=== PATIENT | male | born 1955 | race American Indian/Alaskan Native ===

== ENCOUNTER 2018-02-14 08:32 | Inpatient (IN) | payer MEDICARE ==
[2018-02-14] MEDS ORDERED: D50W (25GM) Vial IV ONE (09:26)
[2018-02-14] MEDS ORDERED: D50W (25GM) Syringe IV ONE ×7 (09:26→17:13)
[2018-02-14 09:28] LABS: Basophils % (Auto) 0.2 % (0.0-1.8); Eosinophils % (Auto) 0.1 % (0.0-4.3); Hematocrit 34.3 % (35.5-45.6); Hemoglobin 11.2 gm/dl (11.8-15.2); Lymphocytes # (Auto) 0.7 K/mm3 (1.2-5.4); Lymphocytes % (Auto) 5.8 % (13.4-35.0); Mean Corpuscular HGB Conc 33 % (32-34); Mean Corpuscular Volume 84 fl (84-94); Monocytes # (Auto) 0.8 K/mm3 (0.0-0.8); Monocytes % (Auto) 7.1 % (0.0-7.3); Platelet Count 271 K/mm3 (140-440); Red Blood Count 4.06 M/mm3 (3.65-5.03); Red Cell Distribution Width 15.8 % (13.2-15.2)
[2018-02-14 09:50] LABS: Calcium 8.7 mg/dL (8.4-10.2)
--- NOTE | 2018-02-14 10:04 | Emergency Department Report ---
HPI - General Chief Complaint: Hypoglycemia Time Seen by Provider: 02/14/18 08:57 - HPI HPI: 62-year-old -Italian male presents to the emergency department via EMS from his shelter facility at the [facility] with the complaint of hypoglycemia. Patient had some low blood sugar yesterday and was difficult to arouse. He was given a couple of shots of glucagon with some improvement. However the patient's blood sugar was once again low today. EMS found him to have a blood sugar of 106 on scene but it was found to be critical low upon arrival here today. He has a past medical history of hemiparesis/hemiplegia secondary to a previous CVA, schizophrenia, depression, hypertension, glaucoma, [id number] diabetes, GERD, hyperlipidemia. Patient is a poor historian secondary to his current and chronic medical conditions. ED Past Medical Hx - Past Medical History Previous Medical History?: Yes Hx CVA: Yes Hx Diabetes: Yes Hx Dementia: Yes - Social History Smoking Status: Unknown if ever smoked - Medications Home Medications: Home Medications Medication Instructions Recorded Confirmed Last Taken Type Acetaminophen [Tylenol] 650 mg PO Q6HR PRN 02/14/18 02/14/18 Unknown History Amlodipine Besylate [Norvasc] 10 mg PO DAILY 02/14/18 02/14/18 Unknown History Atorvastatin Calcium [Lipitor] 10 mg PO HS 02/14/18 02/14/18 Unknown History Atorvastatin Calcium [Lipitor] 40 mg PO HS 02/14/18 02/14/18 Unknown History Cholecalciferol (Vitamin D3) 50,000 unit PO DAILY 02/14/18 02/14/18 Unknown History [Decara 50,000 unit] Clopidogrel Bisulfate [Plavix] 75 mg PO QDAY 02/14/18 02/14/18 Unknown History Famotidine [Pepcid] 20 mg PO QDAY 02/14/18 02/14/18 Unknown History Ferrous Sulfate [Iron] 325 mg PO QDAY 02/14/18 02/14/18 Unknown History Fluticasone Propionate [Cutivate 1 applic TP Q12H PRN 02/14/18 02/14/18 Unknown History 0.05% CREAM] Furosemide [Lasix] 20 mg PO QDAY 02/14/18 02/14/18 Unknown History Gabapentin [Neurontin] 300 mg PO BID 02/14/18 02/14/18 Unknown History Hypromellose [Genteal Severe] 1 inch OD QID 02/14/18 02/14/18 Unknown History Insulin Glargine,Hum.rec.anlog 30 units SUB-Q QHS 02/14/18 02/14/18 Unknown History [Kenanbraydon Brush] Insulin Lispro [HumaLOG VIAL] See Protocol SUB-Q BID 02/14/18 02/14/18 Unknown History Lisinopril [Zestril] 20 mg PO QDAY 02/14/18 02/14/18 Unknown History Metformin HCl [Glucophage] 500 mg PO BID 02/14/18 02/14/18 Unknown History Nitroglycerin [Nitro-Dur] 1 each TD QAM 02/14/18 02/14/18 Unknown History Talmage-3 Fatty Acids 500 mg PO DAILY 02/14/18 02/14/18 Unknown History Phenytoin [Dilantin] 300 mg PO HS 02/14/18 02/14/18 Unknown History Potassium Chloride [Klor-Con 10] 10 meq PO QDAY 02/14/18 02/14/18 Unknown History Triamcinolone 0.1% [Kenalog 0.1% 1 applic TP BID 02/14/18 02/14/18 Unknown History OINT] Valproic Acid [Depakene] 250 mg PO BID 02/14/18 02/14/18 Unknown History traZODone [Desyrel] 25 mg PO QHS 02/14/18 02/14/18 Unknown History ED Review of Systems ROS: Stated complaint: LOW BLOOD SUGAR Other details as noted in HPI Comment: Unobtainable due to pts medical conditions Physical Exam - Physical Exam Vital Signs: Vital Signs 02/14/18 09:55 Temperature 98.4 F Pulse Rate 121 H Respiratory 21 Rate Blood Pressure 152/71 [Left] O2 Sat by Pulse 100 Oximetry Physical Exam: GENERAL: The patient is well-developed well-nourished. HEENT: Normocephalic. Atraumatic. Patient has moist mucous membranes. EYES: Extraocular motions are intact. Pupils are equal and reactive to light bilaterally. NECK: Supple. Trachea is midline. CHEST/LUNGS: Clear to auscultation. There is no respiratory distress noted. HEART/CARDIOVASCULAR: Regular. There is mild tachycardia. There is no obvious murmur. ABDOMEN: Abdomen is soft, nontender. Patient has normal bowel sounds. There is no abdominal distention. SKIN: Skin is warm and dry. NEURO: The patient is and attempts to be cooperative. He has chronic aphasia and dysarthria. Patient attempts to converse and appears to understand questions asked of him. MUSCULOSKELETAL: There is no tenderness or deformity. There is no evidence of acute injury. ED Course Vital Signs 02/14/18 09:55 Temperature 98.4 F Pulse Rate 121 H Respiratory 21 Rate Blood Pressure 152/71 [Left] O2 Sat by Pulse 100 Oximetry ED Medical Decision Making - Lab Data Result diagrams: 02/14/18 08:57 02/14/18 08:57 - EKG Data -: EKG Interpreted by Me EKG shows normal: sinus rhythm, axis (left axis deviation), intervals (T waves to the anterior and lateral and inferior leads), QRS complexes, ST-T waves (there is some early repolarization or J-point elevation to the anterior leads) Rate: tachycardia (115 bpm) - EKG Data When compared to previous EKG there are: previous EKG unavailable Interpretation: other (sinus tachycardia, left axis deviation, Q waves throughout the leads, early repolarization or J-point elevation to the anterior leads) - Radiology Data Radiology results: image reviewed interpreted by me: Chest x-ray does not show any pneumothorax, pleural effusion, pneumonia or obvious focal consolidation. - Medical Decision Making Patient came in after having some recurrent hypoglycemia from his shelter facility. He was critical low when he first arrived. He was then given 2 A of D50 went up to greater than 200. Within 2 hours the patient was once again critically low without any further insulin or hypoglycemic medication being given. At this point the patient was started on a D5 drip and will be admitted to hospital for further evaluation and treatment. The patient was accepted for admission by hospitalist, Dr. Robles. Critical Care Time: No Critical care attestation.: If time is entered above; I have spent that time in minutes in the direct care of this critically ill patient, excluding procedure time. ED Disposition Clinical Impression: Hypoglycemia Hypertension Qualifiers: Hypertension type: essential hypertension Qualified Code(s): I10 - Essential (primary) hypertension Disposition: OP ADMIT IP TO THIS HOSP Is pt being admited?: Yes Condition: Fair Instructions: Hypertension (ED) Referrals: ANGELIC DEL CID III, MD [Primary Care Provider] - 3-5 Days Time of Disposition: 14:59
--- NOTE | 2018-02-14 10:05 | XRay Report ---
AP CHEST: HISTORY: Tachycardia Compared to 10/24/09. Heart size appears borderline. Normal pulmonary vascularity. There is subtle airspace opacity in the left lower lobe behind the heart. This probably represents segmental atelectasis. If fever is present, an early infiltrate could be considered. The remainder of the lungs are clear. No pleural effusion or pneumothorax. IMPRESSION: Borderline heart size. Questionable left lower lobe opacity. See above.
[2018-02-14 10:21] LABS: Alanine Aminotransferase 13 units/L (7-56); Albumin 3.8 g/dL (3.9-5)
[2018-02-14 10:25] LABS: Bilirubin,Direct < 0.2 mg/dL (0-0.2)
--- NOTE | 2018-02-14 12:49 | History and Physical Report ---
History of Present Illness Chief complaint: confused History of present illness: 62 YO Male [facility] Facility Resident at [facility] with CVA, Deblity, DM, Dementia, HTN, HLD, GERD, Schizophrenia presents to ED for evaluation. Pt is confused and unable to provide detailed history. Pt history taken from ED staff, and SNF staff. As per staff, the patient was found to be confused today with a low serum glucose level. EMS notified, and upon arrival the patient was found to be confused. Pt transported to [facility] for further care and evaluation. Pt seen and evaluated in ED and found to have Encephalopathy, SIRS, and Hypoglycemia with glucose less than 40. Pt initiated on Dextrose drip and admitted to medical floor. No further history obtainable. Past History Past Medical History: GERD, hypertension, hyperlipidemia, seizures Past Surgical History: No surgical history, Other (reviewed) Social history: single. denies: smoking, alcohol abuse, prescription drug abuse Family history: diabetes, hypertension Medications and Allergies Allergies Allergy/AdvReac Type Severity Reaction Status Date / Time No Known Allergies Allergy Unverified 02/14/18 08:53 Home Medications Medication Instructions Recorded Confirmed Last Taken Type Acetaminophen [Tylenol] 650 mg PO Q6HR PRN 02/14/18 02/14/18 Unknown History Amlodipine Besylate [Norvasc] 10 mg PO DAILY 02/14/18 02/14/18 Unknown History Atorvastatin Calcium [Lipitor] 10 mg PO HS 02/14/18 02/14/18 Unknown History Atorvastatin Calcium [Lipitor] 40 mg PO HS 02/14/18 02/14/18 Unknown History Cholecalciferol (Vitamin D3) 50,000 unit PO DAILY 02/14/18 02/14/18 Unknown History [Decara 50,000 unit] Clopidogrel Bisulfate [Plavix] 75 mg PO QDAY 02/14/18 02/14/18 Unknown History Famotidine [Pepcid] 20 mg PO QDAY 02/14/18 02/14/18 Unknown History Ferrous Sulfate [Iron] 325 mg PO QDAY 02/14/18 02/14/18 Unknown History Fluticasone Propionate [Cutivate 1 applic TP Q12H PRN 02/14/18 02/14/18 Unknown History 0.05% CREAM] Furosemide [Lasix] 20 mg PO QDAY 02/14/18 02/14/18 Unknown History Gabapentin [Neurontin] 300 mg PO BID 02/14/18 02/14/18 Unknown History Hypromellose [Genteal Severe] 1 inch OD QID 02/14/18 02/14/18 Unknown History Insulin Glargine,Hum.rec.anlog 30 units SUB-Q QHS 02/14/18 02/14/18 Unknown History [Jim Brush] Insulin Lispro [HumaLOG VIAL] See Protocol SUB-Q BID 02/14/18 02/14/18 Unknown History Lisinopril [Zestril] 20 mg PO QDAY 02/14/18 02/14/18 Unknown History Metformin HCl [Glucophage] 500 mg PO BID 02/14/18 02/14/18 Unknown History Nitroglycerin [Nitro-Dur] 1 each TD QAM 02/14/18 02/14/18 Unknown History Gibson-3 Fatty Acids 500 mg PO DAILY 02/14/18 02/14/18 Unknown History Phenytoin [Dilantin] 300 mg PO HS 02/14/18 02/14/18 Unknown History Potassium Chloride [Klor-Con 10] 10 meq PO QDAY 02/14/18 02/14/18 Unknown History Triamcinolone 0.1% [Kenalog 0.1% 1 applic TP BID 02/14/18 02/14/18 Unknown History OINT] Valproic Acid [Depakene] 250 mg PO BID 02/14/18 02/14/18 Unknown History traZODone [Desyrel] 25 mg PO QHS 02/14/18 02/14/18 Unknown History Active Meds: Active Medications Dextrose/Sodium Chloride (D5ns) 1,000 mls @ 100 mls/hr IV DIRECT ALEISHA Review of Systems ROS unobtainable: due to mental status Exam - Constitutional Vitals: Temp Pulse Resp BP Pulse Ox 98.4 F 112 H 25 H 152/71 100 02/14/18 09:55 02/14/18 10:00 02/14/18 10:00 02/14/18 10:00 02/14/18 09:55 General appearance: Present: mild distress - EENT Eyes: Present: PERRL, miosis ENT: hearing intact, clear oral mucosa - Neck Neck: Present: supple, normal ROM - Respiratory Respiratory effort: normal Respiratory: bilateral: CTA - Cardiovascular Heart Sounds: Present: S1 & S2. Absent: rub, click - Extremities Extremities: pulses symmetrical, No edema Peripheral Pulses: within normal limits - Abdominal General gastrointestinal: Present: soft, non-tender, non-distended, normal bowel sounds Male genitourinary: Present: normal - Integumentary Integumentary: Present: clear, warm, dry - Musculoskeletal Musculoskeletal: generalized weakness - Psychiatric Psychiatric: no appropriate mood/affect, no intact judgment & insight, no memory intact, no cooperative - Neurologic Neurologic: CNII-XII intact, moves all extremities, no gait normal Results - Labs CBC & Chem 7: 02/14/18 08:57 02/14/18 08:57 Labs: Abnormal lab results 02/14/18 02/14/18 02/14/18 Range/Units 08:57 08:57 08:57 WBC 11.4 H (4.5-11.0) K/mm3 Hgb 11.2 L (11.8-15.2) gm/dl Hct 34.3 L (35.5-45.6) % RDW 15.8 H (13.2-15.2) % Lymph % (Auto) 5.8 L (13.4-35.0) % Lymph # 0.7 L (1.2-5.4) K/mm3 Seg Neutrophils % 86.8 H (40.0-70.0) % Seg Neutrophils # 9.9 H (1.8-7.7) K/mm3 VBG pH (7.320-7.420) BUN 25 H (9-20) mg/dL Glucose 20 L* (75-100) mg/dL POC Glucose (70-105) Alkaline Phosphatase 132 H (35-129) units/L Albumin 3.8 L (3.9-5) g/dL 02/14/18 02/14/18 02/14/18 Range/Units 09:14 09:18 10:01 WBC (4.5-11.0) K/mm3 Hgb (11.8-15.2) gm/dl Hct (35.5-45.6) % RDW (13.2-15.2) % Lymph % (Auto) (13.4-35.0) % Lymph # (1.2-5.4) K/mm3 Seg Neutrophils % (40.0-70.0) % Seg Neutrophils # (1.8-7.7) K/mm3 VBG pH 7.445 H (7.320-7.420) BUN (9-20) mg/dL Glucose (75-100) mg/dL POC Glucose < 40 L 214 H (70-105) Alkaline Phosphatase (35-129) units/L Albumin (3.9-5) g/dL 02/14/18 02/14/18 Range/Units 11:12 12:34 WBC (4.5-11.0) K/mm3 Hgb (11.8-15.2) gm/dl Hct (35.5-45.6) % RDW (13.2-15.2) % Lymph % (Auto) (13.4-35.0) % Lymph # (1.2-5.4) K/mm3 Seg Neutrophils % (40.0-70.0) % Seg Neutrophils # (1.8-7.7) K/mm3 VBG pH (7.320-7.420) BUN (9-20) mg/dL Glucose (75-100) mg/dL POC Glucose 128 H < 40 L (70-105) Alkaline Phosphatase (35-129) units/L Albumin (3.9-5) g/dL Assessment and Plan - Patient Problems (1) Encephalopathy Current Visit: Yes Status: Acute Plan to address problem: CT Head, neuro checks, aspiration precautions, thyroid panel (2) SIRS (systemic inflammatory response syndrome) Current Visit: Yes Status: Acute Plan to address problem: Empiric antibiotic therapy, supportive care, repeat CBC (3) Hypoglycemia Current Visit: Yes Status: Acute Plan to address problem: D5 IV infusion, Accu check, D50 prn to maintain serum glucose above 90. (4) DVT prophylaxis Current Visit: Yes Status: Acute Plan to address problem: SCD to BLE while in bed
[2018-02-14] MEDS ORDERED: D5NS 1,000 ML IV SCH (13:00)
[2018-02-14] MEDS ORDERED: PROVENTIL IH PRN (14:14)
[2018-02-14] MEDS ORDERED: TYLENOL PO PRN ×2 (14:14→14:16)
[2018-02-14] MEDS ORDERED: SODIUM CHLORIDE FLUSH SYRINGE 10 ML IV PRN (14:14)
[2018-02-14] MEDS ORDERED: ZOFRAN IV PRN (14:14)
[2018-02-14] MEDS ORDERED: HYPROMELLOSE OD SCH (18:00)
[2018-02-14] MEDS: ARTIFICIAL TEARS OPHTH OINT OD SCH (18:34)
[2018-02-14] MEDS: LEVAQUIN 500MG/100ML 500 MG/100 ML BAG IV SCH (21:34)
[2018-02-14] MEDS: DESYREL PO SCH (21:40)
[2018-02-14] MEDS: DILANTIN PO SCH (21:41)
[2018-02-14] MEDS: NEURONTIN PO SCH (21:41)
[2018-02-14] MEDS: SODIUM CHLORIDE FLUSH SYRINGE 10 ML IV SCH (21:42)
[2018-02-14] MEDS ORDERED: NON-FORMULARY (Insulin Glargine,Hum.Rec.Anlog [Toujeo Solostar] 30 UNITS) SUB-Q SCH (22:00)
[2018-02-14] MEDS ORDERED: TRIAMCINOLONE 0.1% TP SCH (22:00)
[2018-02-15 00:07] LABS: Free T4 (Free Thyroxine) 1.09 ng/dL (0.76-1.46)
--- NOTE | 2018-02-15 01:06 | Cat Scan Report ---
FINAL REPORT EXAM: CT HEAD/BRAIN WO CON HISTORY: confusion TECHNIQUE: Contiguous axial images of the head were obtained without the use of intravenous contrast . PRIORS: None. FINDINGS: There is a large area of encephalomalacia involving left parietal, occipital temporal regions. There is ex vacuo dilatation of the left lateral ventricle involving the trigone and temporal horn. There i s no evidence of acute infarct or intracranial hemorrhage. There is no mass lesion or mass effect. T here are no abnormal extra-axial fluid collections. There is deep white matter lucency consistent wit h chronic microvascular ischemic disease. The orbits are unremarkable. The visualized paranasal sinus es are clear. There have prior abhinav holes in the left frontal and parietal bones. IMPRESSION: 1. No evidence of acute infarct or intracranial hemorrhage. 2. White matter lucency consistent with chronic microvascular ischemic disease. 3. Large area of encephalomalacia involving left parietal, occipital temporal regions and evidence of prior surgery.
[2018-02-15] MEDS: ARTIFICIAL TEARS OPHTH OINT OD SCH ×5 (02:51→21:44)
[2018-02-15 04:09] LABS: Calcium 8.6 mg/dL (8.4-10.2)
[2018-02-15] MEDS: LASIX PO SCH (06:18)
[2018-02-15] MEDS: D5NS 2,000 ML IV SCH (06:19)
[2018-02-15] MEDS ORDERED: D50W (25GM) Syringe IV ONE ×2 (08:02→08:42)
[2018-02-15] MEDS ORDERED: D50W (25GM) Syringe IV NR (09:00)
[2018-02-15] MEDS ORDERED: FATTY ACIDS PO SCH (10:00)
[2018-02-15] MEDS ORDERED: K-DUR PO SCH (10:00)
[2018-02-15] MEDS ORDERED: NON-FORMULARY (Potassium Chloride [Klor-Con 10] 10 MEQ) PO SCH (10:00)
[2018-02-15] MEDS ORDERED: CHOLECALCIFEROL 50000 UNIT PO SCH (10:00)
[2018-02-15] MEDS ORDERED: OMEGA PO SCH (10:00)
[2018-02-15] MEDS: NEURONTIN PO SCH ×2 (10:46→21:46)
[2018-02-15] MEDS: PEPCID PO SCH (10:46)
[2018-02-15] MEDS: FEOSOL PO SCH (10:46)
[2018-02-15] MEDS: ZESTRIL PO SCH (10:46)
[2018-02-15] MEDS: PLAVIX PO SCH (10:46)
[2018-02-15] MEDS: NITRO DUR TD SCH (10:46)
[2018-02-15] MEDS: NORVASC PO SCH (10:46)
[2018-02-15] MEDS: LEVAQUIN 500MG/100ML 500 MG/100 ML BAG IV SCH (10:47)
[2018-02-15] MEDS: SODIUM CHLORIDE FLUSH SYRINGE 10 ML IV SCH ×2 (10:48→21:47)
--- NOTE | 2018-02-15 15:54 | Progress Note ---
Assessment and Plan - Patient Problems (1) Encephalopathy Current Visit: Yes Status: Acute Plan to address problem: Sec to persistent hypoglycemia (2) Hypoglycemia Current Visit: Yes Status: Acute Plan to address problem: Insulin dosage needs to be decreased Adjust medicines (3) Hypertension Current Visit: Yes Status: Chronic Qualifiers: Hypertension type: essential hypertension Qualified Code(s): I10 - Essential (primary) hypertension Plan to address problem: Cont antihypertensives (4) SIRS (systemic inflammatory response syndrome) Current Visit: Yes Status: Acute Plan to address problem: IV abx (5) IDDM (insulin dependent diabetes mellitus) Current Visit: Yes Status: Chronic Plan to address problem: Insulin dosagen needs to adjusted lower (6) Seizure disorder Current Visit: Yes Status: Chronic Plan to address problem: Cont phenytoin and valproic acid (7) CAD (coronary artery disease) Current Visit: Yes Status: Chronic Plan to address problem: Cont plavix (8) HLD (hyperlipidemia) Current Visit: Yes Status: Chronic Qualifiers: Hyperlipidemia type: mixed hyperlipidemia Qualified Code(s): E78.2 - Mixed hyperlipidemia Plan to address problem: Cont statins (9) DVT prophylaxis Current Visit: Yes Status: Acute Plan to address problem: On Lovenox and GI prophylaxis Subjective Date of service: 02/15/18 Principal diagnosis: Hypoglycemia Interval history: Still having recurrent Huypoglycemic episodes Objective - Constitutional Vitals: Vital Signs - 12hr 02/15/18 02/15/18 05:05 12:39 Temperature 97.8 F 98.1 F Pulse Rate 76 79 Respiratory 24 18 Rate Blood Pressure 128/67 163/78 O2 Sat by Pulse 97 99 Oximetry General appearance: Present: no acute distress, well-nourished - EENT Eyes: PERRL, EOM intact ENT: hearing intact, clear oral mucosa Ears: bilateral: normal - Neck Neck: supple, normal ROM - Respiratory Respiratory effort: normal Respiratory: bilateral: CTA - Breasts Breasts: normal - Cardiovascular Heart rate: 78 Rhythm: regular Heart Sounds: Present: S1 & S2. Absent: gallop, rub Extremities: pulses intact, No edema, normal color, Full ROM - Gastrointestinal General gastrointestinal: Present: soft, non-tender, non-distended, normal bowel sounds Rectal Exam: deferred - Genitourinary Male genitourinary: normal - Integumentary Integumentary: clear, warm, dry - Musculoskeletal Musculoskeletal: 1, strength equal bilaterally - Neurologic Neurologic: moves all extremities - Psychiatric Psychiatric: other (Lethargic) - Allied health notes Allied health notes reviewed: nursing, case management - Labs CBC & Chem 7: 02/14/18 08:57 02/15/18 03:51 Labs: Abnormal lab results 02/14/18 02/14/18 02/14/18 Range/Units 17:00 17:37 20:59 BUN (9-20) mg/dL Creatinine (0.8-1.5) mg/dL Glucose (75-100) mg/dL POC Glucose < 40 L 154 H 118 H (70-105) 02/15/18 02/15/18 02/15/18 Range/Units 03:51 07:53 09:05 BUN 28 H (9-20) mg/dL Creatinine 1.8 H (0.8-1.5) mg/dL Glucose 61 L (75-100) mg/dL POC Glucose < 40 L 198 H (70-105) 02/15/18 02/15/18 Range/Units 09:38 11:34 BUN (9-20) mg/dL Creatinine (0.8-1.5) mg/dL Glucose (75-100) mg/dL POC Glucose 172 H 198 H (70-105)
[2018-02-15 16:10] LABS: Bilirubin,Urine NEG (Negative); Blood,Urine NEG (Negative); Color,Urine Yellow (Yellow); Urobilinogen,Urine < 2.0 mg/dL (<2.0)
[2018-02-15] MEDS: DESYREL PO SCH (21:45)
[2018-02-15] MEDS: DILANTIN PO SCH (21:45)
[2018-02-16] MEDS: D5NS 2,000 ML IV SCH (01:41)
[2018-02-16] MEDS: LASIX PO SCH (06:12)
[2018-02-16] MEDS: LEVAQUIN 500MG/100ML 500 MG/100 ML BAG IV SCH (10:54)
[2018-02-16] MEDS: NITRO DUR TD SCH (10:55)
[2018-02-16] MEDS: FEOSOL PO SCH (10:56)
[2018-02-16] MEDS: NEURONTIN PO SCH (10:56)
[2018-02-16] MEDS: PEPCID PO SCH (10:56)
[2018-02-16] MEDS: PLAVIX PO SCH (10:56)
[2018-02-16] MEDS: ZESTRIL PO SCH (10:56)
[2018-02-16] MEDS: NORVASC PO SCH (10:57)
[2018-02-16] MEDS: SODIUM CHLORIDE FLUSH SYRINGE 10 ML IV SCH (10:57)
--- NOTE | 2018-02-16 13:06 | Discharge Summary ---
Providers - Providers Date of Admission: 02/14/18 14:14 Date of discharge: 02/16/18 Attending physician: MARU KESSLER Primary care physician: ANGELIC DEL CID III, MD Hospitalization Condition: Fair Hospital course: Patient Problems (1) Encephalopathy Current Visit: Yes Status: Acute Plan to address problem: Resolved (2) Hypoglycemia Current Visit: Yes Status: Acute Plan to address problem: Insulin dosage decreased (3) Hypertension Current Visit: Yes Status: Chronic Qualifiers: Hypertension type: essential hypertension Qualified Code(s): I10 - Essential (primary) hypertension Plan to address problem: Cont antihypertensives (4) SIRS (systemic inflammatory response syndrome) Current Visit: Yes Status: Acute Plan to address problem: d/c on po abx (5) IDDM (insulin dependent diabetes mellitus) Current Visit: Yes Status: Chronic Plan to address problem: Insulin dosage decreased (6) Seizure disorder Current Visit: Yes Status: Chronic Plan to address problem: Cont phenytoin and valproic acid (7) CAD (coronary artery disease) Current Visit: Yes Status: Chronic Plan to address problem: Cont plavix (8) HLD (hyperlipidemia) Current Visit: Yes Status: Chronic Qualifiers: Hyperlipidemia type: mixed hyperlipidemia Qualified Code(s): E78.2 - Mixed hyperlipidemia Plan to address problem: Cont statins Disposition: DC- TO HOME OR SELFCARE Core Measure Documentation - Palliative Care Palliative Care/ Comfort Measures: Not Applicable - Core Measures Any of the following diagnoses?: none Exam - Constitutional Vitals: Temp Pulse Resp BP Pulse Ox 97.0 F L 71 18 157/71 98 02/16/18 05:01 02/16/18 05:01 02/16/18 05:01 02/16/18 05:01 02/16/18 05:01 General appearance: Present: no acute distress, well-nourished - EENT Eyes: Present: PERRL ENT: hearing intact, clear oral mucosa - Neck Neck: Present: supple, normal ROM - Respiratory Respiratory effort: normal Respiratory: bilateral: CTA - Cardiovascular Heart rate: 78 Rhythm: regular Heart Sounds: Present: S1 & S2. Absent: rub, click - Extremities Extremities: pulses symmetrical, No edema Peripheral Pulses: within normal limits - Abdominal General gastrointestinal: Present: soft, non-tender, non-distended, normal bowel sounds Male genitourinary: Present: normal - Integumentary Integumentary: Present: clear, warm, dry - Musculoskeletal Musculoskeletal: gait normal, strength equal bilaterally - Psychiatric Psychiatric: appropriate mood/affect, intact judgment & insight - Neurologic Neurologic: CNII-XII intact, moves all extremities Plan Activity: no restrictions Diet: diabetic Follow up with: ANGELIC DEL CID III, MD [Primary Care Provider] - 3-5 Days
[2018-02-16 13:49] VITALS: BP 145/77
== END 2018-02-16 15:45 | DRG 637 ==
LOC: ED 08:32 → 3A 14:14
PROVIDERS: ADMIT Internal Medicine; ATTEND Internal Medicine
DX: E11.649 Type 2 diabetes mellitus with hypoglycemia without coma (principal); G93.41 Metabolic encephalopathy; R65.10 Systemic inflammatory response syndrome (SIRS) of non-infectious origin without acute organ dysfunction; I69.359 Hemiplegia and hemiparesis following cerebral infarction affecting unspecified side; F03.90 Unspecified dementia, unspecified severity, without behavioral disturbance, psychotic disturbance, mood disturbance, and anxiety; K21.9 Gastro-esophageal reflux disease without esophagitis; I10 Essential (primary) hypertension; F20.9 Schizophrenia, unspecified; F32.9 Major depressive disorder, single episode, unspecified; H40.9 Unspecified glaucoma; E78.2 Mixed hyperlipidemia; I25.10 Atherosclerotic heart disease of native coronary artery without angina pectoris; G40.909 Epilepsy, unspecified, not intractable, without status epilepticus; Z83.3 Family history of diabetes mellitus; Z82.49 Family history of ischemic heart disease and other diseases of the circulatory system; Z79.899 Other long term (current) drug therapy; Z79.4 Long term (current) use of insulin
CPT/HCPCS: 36415; 70450; 71045; 80048; 80076; 81001; 82140; 82805; 82962; 84439; 84443; 84484; 85025; 93005; 93010; 96374; 96376; G0378; A9270-GY; J1956; J7042